=== PATIENT | male | born 1970 | race Two or more races ===

== ENCOUNTER 2022-05-01 09:28 | Emergency (ER) | payer OTHER ==
[~2022-05-01] VITALS: Ht 180.3 cm; Wt 118.2 kg
[2022-05-01 09:48] VITALS: BP 147/83
[2022-05-01] MEDS ORDERED: morphine 4 MG/ML inj SYRINge IM ONE (10:15)
[2022-05-01] MEDS ORDERED: orphenadrine citrate 60mg/2ml inj. IM ONE (10:15)
[2022-05-01] MEDS ORDERED: acetaminophen 325mg tablet PO ONE (10:15)
[2022-05-01] MEDS ORDERED: HYDR-3964 PO (10:59)
[2022-05-01] MEDS ORDERED: CYCL-394 PO (10:59)
== END 2022-05-01 11:16 | disposition home or self-care (01) ==
LOC: ER 09:30
DX: M54.50 Low back pain, unspecified (principal); Z88.8 Allergy status to other drugs, medicaments and biological substances
CPT/HCPCS: 96372; 99284; J2270; J2360

== ENCOUNTER 2023-07-17 09:23 | Emergency (ER) | payer OTHER ==
[~2023-07-17] VITALS: Ht 180.3 cm; Wt 97.6 kg
[2023-07-17 09:27] VITALS: BP 154/63; PULSE 55; TEMP 98.2; O2SAT 99
[2023-07-17] MEDS ORDERED: ketorolac trometh inj. 60 MG/2 ML VIAL IM ONE (11:20)
[2023-07-17] MEDS ORDERED: CYCL-1 PO (11:22)
[2023-07-17] MEDS ORDERED: LIDO700A32 TOP (11:22)
[2023-07-17 11:45] VITALS: RESP 14
[2023-07-17] MEDS: dexamethasone sod phosphate 10mg/ml inj IM STA (11:45)
[2023-07-17] MEDS: HYDROcodone/acetaminophen 5mg/325mg tablet PO ONE (11:45)
[2023-07-17] MEDS: ketorolac tromethamine 15mg/ml inj. IM ONE (11:45)
[2023-07-17] MEDS: cyclobenzaprine 10mg tablet PO ONE (11:46)
[2023-07-18] MEDS ORDERED: LIDOcaine 5% patch TP SCH (08:00)
== END 2023-07-17 18:00 | disposition home or self-care (01) ==
LOC: ER 09:24
DX: S39.012A Strain of muscle, fascia and tendon of lower back, initial encounter (principal); Z88.8 Allergy status to other drugs, medicaments and biological substances; Z79.899 Other long term (current) drug therapy; X58.XXXA Exposure to other specified factors, initial encounter; Y93.89 Activity, other specified; Y92.89 Other specified places as the place of occurrence of the external cause; Y99.8 Other external cause status
CPT/HCPCS: 72100; 96372; 99284; J1100; J1885